=== PATIENT | male | born 1995 | race Caucasian/White ===

== ENCOUNTER 2024-10-05 10:18 | Outpatient (CLI) | payer OTHER, SELFPAY ==
--- NOTE | 2024-10-05 10:24 | XR_ITS ---
FINAL REPORT CLINICAL HISTORY: right foot pain and mobility issues since surg on foot in 2011, no new injury COMPARISON: None FINDINGS: Three views of the right foot show hammertoe deformities of multiple digits. There are no fractures or dislocation. No evidence of bony erosion. IMPRESSION: Hammertoe deformities without acute bony abnormality. Reviewed, Interpreted and Dictated by Joseph aCrrillo MD Transcribed by Joleen Painting Authenticated and . [facility]
== END 2024-10-05 23:59 | disposition home or self-care (01) ==
LOC: RAD 10:20
PROVIDERS: PCP Nurse Practitioner; Visit Provider Physician Assistant
DX: M79.671 Pain in right foot (principal)
CPT/HCPCS: 73630

== ENCOUNTER 2024-10-21 12:23 | Outpatient (CLI) | payer OTHER, SELFPAY ==
--- NOTE | 2024-10-21 12:26 | CT_ITS ---
FINAL REPORT TECHNIQUE: Axial CT images were performed through the head without contrast. Coronal and sagittal reformatted images were submitted. This study was performed with techniques to keep radiation doses as low as reasonably achievable, (ALARA). Individualized dose reduction techniques using automated exposure control or adjustment of mA and/or kV according to the patient's size were employed. CLINICAL HISTORY: MIGRAINES COMPARISON: None FINDINGS: The ventricles are normal in size. The brain is homogeneous. There is no evidence of hemorrhage. There is no mass effect or edema identified. There is no abnormal extra-axial fluid seen. The paranasal sinuses are well aerated. IMPRESSION: No acute intracranial process. Reviewed, Interpreted and Dictated by Wade Connolly MD Transcribed by Angella Lubin Authenticated and [facility]
== END 2024-10-21 23:59 | disposition home or self-care (01) ==
LOC: RAD 12:24
PROVIDERS: PCP Nurse Practitioner; Visit Provider Nurse Practitioner
DX: G43.909 Migraine, unspecified, not intractable, without status migrainosus (principal)
CPT/HCPCS: 70450